=== PATIENT | female | born 1960 | race Caucasian/White ===

== ENCOUNTER 2022-01-25 14:29 | Emergency (ER) | payer MEDICAID ==
[~2022-01-25] VITALS: Ht 154.9 cm; Wt 47.7 kg
[2022-01-25] MEDS ORDERED: ATOR40TA28 PO (14:32)
[2022-01-25] MEDS ORDERED: METF-1211 PO (14:32)
[2022-01-25 14:35] VITALS: BP 153/75
[2022-01-25 14:46] LABS: GLUCOSE,POINT OF CARE 392 MG/DL (70-110)
[2022-01-25 17:02] LABS: APPEARANCE,URINE CLEAR (CLEAR); BILIRUBIN,URINE NEGATIVE (NEGATIVE); GLUCOSE, URINE (UA) >=1000 mg/dL (NEGATIVE); KETONES,URINE NEGATIVE (NEGATIVE); LEUKOCYTE ESTERASE ,URINE NEGATIVE (NEGATIVE); NITRATE,URINE NEGATIVE (NEGATIVE); OCCULT BLOOD,URINE NEGATIVE (NEGATIVE); PH,URINE 6.5 (5.0-8.0); PROTEIN,URINE NEGATIVE (NEGATIVE); SPECIFIC GRAVITIY, URINE 1.023 (1.003-1.030); UROBILINOGEN,URINE <=1.0 mg/dL (<=1.0)
[2022-01-25 17:07] LABS: BACTERIA,URINE Rare /HPF (None Seen); RBC,URINE 0-2 /HPF (0-2); SQUAMOUS EPITHELIAL CELL,UR Rare /LPF (None Seen); WBC,URINE 0-2 /HPF (0-5)
== END 2022-01-25 17:46 | disposition home or self-care (01) ==
LOC: EMS 14:33
DX: S90.31XA Contusion of right foot, initial encounter (principal); N81.4 Uterovaginal prolapse, unspecified; E11.9 Type 2 diabetes mellitus without complications; E78.00 Pure hypercholesterolemia, unspecified; Z88.5 Allergy status to narcotic agent; Z79.84 Long term (current) use of oral hypoglycemic drugs; W45.8XXA Other foreign body or object entering through skin, initial encounter; Y93.89 Activity, other specified; Y92.89 Other specified places as the place of occurrence of the external cause; Y99.8 Other external cause status
CPT/HCPCS: 81001; 82962; 99284